=== PATIENT | female | born 1985 | race African-American/Black ===

== ENCOUNTER → 2017-04-08 | Outpatient (CLI) | payer OTHER ==
[~2017-04-08] MED LIST: ALBUTEROL17 GM INH; AMOXICILLIN PO; AMOXICILLIN500 M1 PO; ASMANEX HFA13 G1; BLISOVI FE 1-21 EACH; EPIPEN0.3 MG/0.1 IM; FLONASE ALLERG9.9 ML; KEFLEX500 MG PO; LORTAB 5/500 TA1 TA1 PO; MEDROL4 MG/DOSE- PO; PREDNISONE PO; PROPRANOLOL HCL80 M1 PO; SEROQUEL300 M1 PO; SUDAFED30 M1 PO; TOPIRAMATE100 MG PO; ULTRAM PO; WELLBUTRIN SR200 MG PO; ZANTAC150 MG PO; ZYRTEC10 M1 PO
== END | disposition home or self-care (01) ==
LOC: CBAR 08:44
DX: Z01.812 Encounter for preprocedural laboratory examination (principal); E66.01 Morbid (severe) obesity due to excess calories
CPT/HCPCS: 36415; 84443; 86677; G0463

== ENCOUNTER → 2017-05-13 | Outpatient (CLI) | payer OTHER ==
--- NOTE | ~2017-05-13 | EKG ---
PATIENT: DIANA MEJIA UNIT #: [id number] Ventricular Rate: 99 BPM Atrial Rate: 99 BPM P-R Interval: 156 ms QRS Duration: 88 ms Q-T Interval: 344 ms QTC Calculation(Bezet): 441 ms P [place]: 51 degrees Calculated R [place]: 45 degrees Calculated T [place]: 20 degrees Diagnosis Line: Normal sinus rhythm Diagnosis Line: Nonspecific T wave abnormality Diagnosis Line: Abnormal ECG Diagnosis Line: No previous ECGs available Diagnosis Line: Confirmed by BHARGAV ARGUETA MD ([id number]) on Diagnosis Line: 05/13/2017 4:18:29 PM INTERPRETING MD: SHADI
--- NOTE | ~2017-05-13 | CR97 ---
[facility] A Service of [facility] RADIOLOGY TEXT RESULTS PATIENT: DIANA MEJIA LOCATION: [facility] : 84 UNIT #: [id number] AGE: [address]: Morgan Up MD SEX: F ORDER DR: [id number] [facility] [address] [place], [place] [address] [id number] O MR#: [id number] Acc #: [id number] NAME: DIANA MEJIA : 1985 SEX: F STUDY DATE/TIME: 05/13/2017 9:28 UNIT: [facility] ROOM: STUDY DESCRIPTION: CR Esophagram Attending Physician: Morgan Up M.D. Ordering Physician: Morgan Up M.D. Primary Care Physician: Ethel Balderrama M.D. MEDICAL IMAGING REPORT This report is preliminary unless electronic signature is present EXAM Barium esophagram. HISTORY Preop lap band surgery. FINDINGS Under fluoroscopic control, barium crystals were administered orally. Swallowing was normal. The esophagus was of normal course, caliber, mucosal pattern and distensibility. CONCLUSION Normal. Dictated by... Morgan Ibarra M.D. THIS IS AN ELECTRONICALLY VERIFIED REPORT Morgan Ibarra M.D. at 05/16/2017 5:11 PM GRUPO/jazmyne TD: 05/13/2017 12:31 JOB #: [id number] MEDICAL IMAGING REPORT Page 1 of 1 COPY
--- NOTE | ~2017-05-13 | CR63 ---
[facility] A Service of [facility] RADIOLOGY TEXT RESULTS PATIENT: DIANA MEJIA LOCATION: [facility] : 84 UNIT #: [id number] AGE: [address]: Morgan Up MD SEX: F ORDER DR: [id number] [facility] [address] [place], [place] [address] [id number] O MR#: [id number] Acc #: [id number] NAME: DIANA MEJIA. : 1985 SEX: F STUDY DATE/TIME: 05/13/2017 7:54 UNIT: [facility] ROOM: STUDY DESCRIPTION: CR Chest 2 View Attending Physician: Morgan Up M.D. Ordering Physician: Morgan Up M.D. Primary Care Physician: Ethel Balderrama M.D. MEDICAL IMAGING REPORT This report is preliminary unless electronic signature is present EXAM Chest PA and lateral HISTORY Preop bariatric surgery, Lap-Band. FINDINGS PA and lateral views are obtained. The cardiovascular configuration is normal and the lungs are clear. There has been no change since July 29, 2010. CONCLUSION No active disease. Dictated by... Morgan Ibarra M.D. THIS IS AN ELECTRONICALLY VERIFIED REPORT Morgan Ibarra M.D. at 05/16/2017 5:12 PM GRUPO/hebert TD: 05/13/2017 10:26 JOB #: [id number] MEDICAL IMAGING REPORT Page 1 of 1 COPY
[2017-05-13 09:01] LABS: HEMATOCRIT 40.9 % (35.0-45.0); HEMOGLOBIN 13.3 gm/dL (12.0-16.0); MEAN CORPUSCULAR HEMOGLOBIN 29.8 PG (28-34); MEAN CORPUSCULAR HGB CONC 32.4 g/dL (30-36); MEAN PLATELET VOLUME 7.7 FL (6.5-11.5); RED BLOOD COUNT 4.45 X10e (3.90-5.30); RED CELL DISTRIBUTION WIDTH 14.2 % (11.0-15.5); WHITE BLOOD COUNT 9.5 X10e3 (4.0-10.5)
[2017-05-13 10:08] LABS: ALBUMIN SERUM 3.3 g/dL (3.5-5.0); BILIRUBIN,TOTAL 0.3 mg/dL (0.2-2.0); BUN/CREATININE RATIO 13.33; CALCIUM SERUM 9.2 mg/dL (8.4-10.2); CREATININE SERUM 0.9 mg/dL (0.6-1.4); GLOM FILT RATE Estimated 97.4 mL/min (>60); POTASSIUM 3.9 mmol/L (3.5-5.1); PROTEIN TOTAL SERUM 6.9 g/dL (6.0-8.3)
== END | disposition home or self-care (01) ==
LOC: CRAD 07:32 → CAMB 08:30
PROVIDERS: Surgery
DX: Z01.818 Encounter for other preprocedural examination (principal); R94.31 Abnormal electrocardiogram [ECG] [EKG]
CPT/HCPCS: 36415; 71020; 74220; 80053; 80061; 84443; 85027; 93005

== ENCOUNTER → 2017-05-25 | Day surgery (SDC) | payer OTHER ==
--- NOTE | ~2017-05-25 | CR7 ---
[facility] A Service of [facility] RADIOLOGY TEXT RESULTS PATIENT: DIANA MEJIA LOCATION: [facility] : 84 UNIT #: [id number] AGE: [address]: Morgan Up MD SEX: F ORDER DR: [id number] [facility] [address] [place], [place] [address] [id number] O MR#: [id number] Acc #: [id number] NAME: DIANA MEJIA. : 1985 SEX: F STUDY DATE/TIME: 05/25/2017 8:54 UNIT: [facility] ROOM: STUDY DESCRIPTION: CR Abdomen Single AP View Attending Physician: Morgan Up M.D. Ordering Physician: Morgan Up M.D. Primary Care Physician: Ethel Balderrama M.D. MEDICAL IMAGING REPORT This report is preliminary unless electronic signature is present EXAM Supine radiograph of the abdomen. HISTORY Status post Lap-Band placement. FINDINGS Supine radiograph of the abdomen shows the patient is status post of Lap-Band device. Band component at level of gastroesophageal junction, based on esophagram 05/13/2017. Band component approximately 60 degrees from vertical. Catheter components appears radiographically intact. Port component implanted over the low left hemiabdomen. Bowel gas pattern normal. Mild cardiac enlargement suggested. Dictated by... Morgan Loaiza M.D. THIS IS AN ELECTRONICALLY VERIFIED REPORT Morgan Loaiza M.D. at 05/26/2017 6:42 PM ALYSSA/jacob TD: 05/25/2017 11:17 JOB #: [id number] MEDICAL IMAGING REPORT Page 1 of 1 COPY
--- NOTE | ~2017-05-25 | OR ---
Unit #: [id number] #: [id number] Patient: DIANA MEJIA [id number] [address] [address] [id number] O MR#: [id number] NAME: DIANA MEJIA. ROOM: Date of Procedure: 05/25/2017 Admission Date: 05/25/2017 Surgeon: Morgan Up M.D. : 1985 Attending Physician: Morgan Up M.D. Primary Care Physician: Ethel Balderrama M.D. OPERATIVE REPORT PREOPERATIVE DIAGNOSIS Chronic mass index, body mass index of 56. POSTOPERATIVE DIAGNOSES 1. Chronic morbid obesity, body mass index of 56. 2. Paraesophageal hiatal hernia. PROCEDURES PERFORMED 1. Laparoscopic adjustable gastric band. 2. Laparoscopic paraesophageal hiatal hernia repair. BLOOD BANK MANAGER Jamey Portillo M.D. ANESTHESIA General endotracheal anesthesia. ESTIMATED BLOOD LOSS Minimal. IV FLUIDS 800 crystalloid. COMPLICATIONS None. INDICATIONS FOR PROCEDURE The patient is a 32-year-old with chronic morbid obesity. DESCRIPTION OF PROCEDURE The patient was taken to the operating room and placed in supine position. General anesthesia was induced. The abdomen was prepped and draped. A 3-cm incision was then made left of the midline. A 10-mm Visiport was then placed intraabdominal under direct vision. The abdomen was insufflated to 15 mmHg with CO2. The patient was then placed in a steep reversed Trendelenburg. General inspection of the abdomen revealed what appeared to be a paraesophageal hernia. This was identified with a defect at the diaphragm using anterior palpation with the instrument. We then made a small incision in the subxiphoid region. A Kenneth liver retractor was then placed intraabdominal and used to retract the left lobe of the liver upward to further expose the paraesophageal hernia and GE junction. I then placed a 5-mm port in the right upper quadrant, a 10-mm Unit #: [id number] #: [id number] Patient: DIANA MEJIA port in the left upper quadrant, and another 5-mm port in the left lower quadrant. The stomach was retracted medial and downward. Upon retracting the stomach, we took down the paraesophageal ligament, exposing the right and left dejan at the paraesophageal hernia. Any hernia sac was reduced. We then repaired the paraesophageal hernia using interrupted #0 Ethibond sutures in a [id number] type fashion. This formed a snug repair to the anterior esophagus. We then retracted the stomach medially and further exposed the angle of His using Bovie electrocautery. The stomach was then retracted laterally. We then took down the hepatogastric ligament with Bovie electrocautery. This exposed the right djean. Using blunt dissection, I created a retrogastric tunnel from this point to the angle of His. The band was then placed intraabdominal through the 10-mm port site. This was then brought through the retrogastric tunnel in a pars flaccida technique. The band was then closed anteriorly to form a 20-mL to 25-mL anterior gastric pouch. The fundus was then secured to the anterior pouch to prevent movement around the stomach using two interrupted #0 Ethibond sutures. A third suture was then used as a gathering stitch from the lesser curve to the anterior stomach, gathering and imbricating the remaining fundus of the stomach. The tubing was then brought out through the midline 10-mm port site. All ports and the Kenneth liver retractor were removed under direct vision with no evidence of abdominal hemorrhage. A polypropylene mesh was then secured to the posterior face of the laparoscopic band port. This was secured using #0 Ethibond suture. This was then cut to shape. The port was then connected to the tubing and placed into a subcutaneous pocket just anterior to the rectus sheath. Its position was then confirmed. All tubing was then placed intraabdominal. The wounds were then closed with interrupted 4-0 Vicryl. The patient tolerated the procedure well and was sent to the recovery room in good condition. Dictated by... Divya Asher/fouzia TD: 05/25/2017 16:36 JOB #: [id number] OPERATIVE REPORT Page 1 of 1 X Morgan Up MD X PROCEDURE OPERATIVE NOTE
== END | disposition home or self-care (01) ==
LOC: CSUR 05:51
DX: E66.01 Morbid (severe) obesity due to excess calories (principal); K44.9 Diaphragmatic hernia without obstruction or gangrene; I10 Essential (primary) hypertension; J45.909 Unspecified asthma, uncomplicated; K21.9 Gastro-esophageal reflux disease without esophagitis; M19.90 Unspecified osteoarthritis, unspecified site; G43.909 Migraine, unspecified, not intractable, without status migrainosus; G47.30 Sleep apnea, unspecified; E78.5 Hyperlipidemia, unspecified; F17.210 Nicotine dependence, cigarettes, uncomplicated; Z68.43 Body mass index [BMI] 50.0-59.9, adult; Z80.3 Family history of malignant neoplasm of breast; Z79.51 Long term (current) use of inhaled steroids; Z79.899 Other long term (current) drug therapy; Z98.818 Other dental procedure status; Z91.040 Latex allergy status; Z91.041 Radiographic dye allergy status; Z91.018 Allergy to other foods; Z98.890 Other specified postprocedural states
CPT/HCPCS: 74000; 84703; C1713; C1781; J0330; J0690; J1650; J1885; J2250; J2405; J2710; J3010; L8699